=== PATIENT | female | born 2000 | race Caucasian/White ===

== ENCOUNTER 2019-07-19 14:01 | Day surgery (SDC) | payer OTHER, SELFPAY ==
[2019-07-19 14:22] VITALS: BP 118/70; TEMP 99.2; BMI 31.9
[2019-07-19] MEDS ORDERED: Ondansetron PF 4 MG/2 ML Vial IVP PRN (14:24)
[2019-07-19] MEDS ORDERED: Promethazine HCl 25 MG/ML VIAL IM PRN (14:24)
[2019-07-19] MEDS ORDERED: hydrALAZINE 20 MG/ML VIAL SLOW IVP PRN (14:24)
--- NOTE | 2019-07-19 14:24 | PDOC.LDHP ---
Labor and Delivery H&P Chief complaint: other (ECV) HPI: Patient presents for EVC. She does not think she has turned over, but she has been moving a lot. She denies LOF, VB. or contractions. Current gestational age (weeks): 37 (and 5 days) Due date: 08/04/19 Dating criteria: last menstrual period Grav: 1 Para: 0 Current complications: none (Breech) Abnormal US findings: No Past Medical History: Celiac disease Food Allergies. Current medications: pre-radha vitamins, other (Daily Probiotic) Allergies/Adverse Reactions: Allergies Allergy/AdvReac Type Severity Reaction Status Date / Time gluten Allergy Verified 07/19/19 14:22 wheat Allergy Verified 07/19/19 14:22 Social history: none - Physical Exam Vital signs reviewed and normal: yes (BP 118/70. Pulse 84bpm.) General: NAD Lungs: nonlabored breathing Abdomen: gravid Extremeties: no edema FHT: category 1 (150 baseline, Moderate variability, +Accel. No decelerations) [place] contractions every: none - OB Labs Blood type: A RH: positive Antibody Screen: negative HIV: negative RPR: negative HEPSAg: negative 1 hour GCT: positive 3 hour GTT: negative TID testing. GBS: negative Urine drug screen: not done Rubella: immune - Assessment at [id number] with Breech presentation - Plan Plan: informed consent obtained -: Terbutaline given Mineral oil at bedside. Dr. Hamm notified
[2019-07-19] MEDS ORDERED: Lactated Ringer's 500 ML IV PRN (14:27)
[2019-07-19] MEDS ORDERED: Mineral Oil PER 1 ML FS SCH (14:30)
[2019-07-19] MEDS ORDERED: Terbutaline Sulfate 1 MG/ML VIAL SC SCH (14:30)
--- NOTE | 2019-07-19 15:33 | OP ---
DATE OF PROCEDURE: 07/19/2019 TIME OF SERVICE: 1445 hours. PREOPERATIVE DIAGNOSIS: 37 weeks' gestation. POSTOPERATIVE DIAGNOSES: 1. 37 weeks' gestation. 2. Conversion to cephalic presentation. PROCEDURE PERFORMED: External cephalic version with ultrasound guidance. ANESTHESIA: None. MEDICATIONS: 0.25 terbutaline subcu x1 approximately 5 minutes prior to procedure. FINDINGS: 1. Marion breech presentation, female infant with head and maternal right upper quadrant back through the right lower quadrant and marion breech from the 4 to 6 o'clock position. Normal amniotic fluid index for 37 weeks' gestation. 2. Good heart rate, tracing category I pre and postprocedurally. 3. Ultrasound guidance throughout external cephalic version. DISPOSITION: Home in good condition. FOLLOWUP: Followup with Vianey Adamson, certified nurse staff veterinarian. DESCRIPTION OF PROCEDURE: The patient gave verbal and written informed consent for the procedure. Blood type was noted to be Rh positive. She had a category I heart rate tracing. Findings as noted and the operative findings were noted. After awaiting approximately 5 minutes, the patient was laid flat and mineral oil was applied to her abdomen. Sonogram confirmed the findings as noted in the operative findings and was utilized throughout. The infant's breech was elevated and displaced in a counter-clockwise manner toward the maternal left upper quadrant. At the same time, the head by the logging equipment operator's other hand rotated in a counter-clockwise manner through the 10 o'clock position to 9 and then down to 6 engaging in the pelvis. Version from marion breech to cephalic was accomplished approximately 30 to 45 seconds. heart tones were checked throughout and as well as postprocedurally noted to be 130s to 140s, category I. No abnormalities were noted. The patient will be set up and monitored for approximately another hour if category I heart rate tracing is maintained. The patient will be discharged home with ER precautions and scheduled follow up with Vianey Adamson. Job ID: [id number]
== END 2019-07-19 17:00 | disposition home or self-care (01) ==
LOC: L&D/OP 14:01
PROVIDERS: ATTEND Obstetrics & Gynecology
PROC: 10E0XZZ Delivery of Products of Conception, External Approach (ICD-10-PCS; principal; 2019-07-19)
DX: O32.1XX0 Maternal care for breech presentation, not applicable or unspecified (principal); Z3A.37 37 weeks gestation of pregnancy; Z88.8 Allergy status to other drugs, medicaments and biological substances
CPT/HCPCS: J3105

== ENCOUNTER 2019-08-10 11:06 | Day surgery (SDC) | payer SELFPAY ==
[2019-08-10 12:14] VITALS: BMI 32.4
[2019-08-10] MEDS ORDERED: FLU VACC QS2019-20(6MOS UP)/PF 60 MCG/0.5 ML SYRINGE IM ONE (12:45)
[2019-08-10] MEDS ORDERED: hydrALAZINE 20 MG/ML VIAL SLOW IVP PRN (14:45)
--- NOTE | 2019-08-10 15:59 | PRG ---
DATE OF SERVICE: 08/10/2019 PRIMARY OB: . Vianey Adamson, nurse bartender. CHIEF COMPLAINT: Elevated blood pressures. HISTORY OF PRESENT ILLNESS: The patient is a 19-year-old G1, P0 female with an intrauterine at 40 weeks and 6 days, presenting to Labor and Delivery after being sent from the clinic for elevated blood pressures noted in clinic, reported as high as 150/80. The patient denies headache, chest pain, shortness of breath, nausea, vomiting, diarrhea, constipation outside her normal habits, new rashes, hip problems, knee problems, muscle weakness, vaginal bleeding, or leakage of fluid. The patient does report she lives about an hour and hour from here, had been contemplating an elective induction with Dr. Crook, OB provider covering, while Ms. Vianey Adamson is out. PAST MEDICAL HISTORY: Celiac disease. PAST SURGICAL HISTORY: Negative. ALLERGIES: NO KNOWN DRUG ALLERGIES. MEDICATIONS: vitamins. SOCIAL HISTORY: Denies drug, alcohol, or tobacco use. OB LABS: Unavailable at the time of dictation. REVIEW OF SYSTEMS: Per HPI. PHYSICAL EXAMINATION: VITAL SIGNS: Blood pressure is 111/74, heart rate of 115, her pressures throughout her stay have ranged from 111 to 135 systolic and 70s and 80s diastolic, pulse 80s to 100s, respiratory rate of 20, saturating 98% on room air, and temperature 98.3. GENERAL: She appears to be in no acute distress. She is alert, oriented, cooperative, and pleasant to interact with. HEAD: Normocephalic, atraumatic. LUNGS: Clear to auscultation bilaterally. HEART: Has regular rate and rhythm. ABDOMEN: Gravid and soft. EXTREMITIES: Nontender, nonedematous. : Exam has been deferred, but reported to be one in sick in the office just prior to presentation. heart tracing shows a baby with a baseline in the 140s with moderate long-term variability, positive 15 x 15 accelerations and no decelerations. Tocometer showing probably some irritability without contractions. ASSESSMENT AND PLAN: The patient is a 19-year-old female, G1, P0, presenting 40 weeks and 6 days for an isolated blood pressure in the clinic. The patient has been here for a total of 3.5 hours and has not had any elevated blood pressures. The patient is being contemplated elective induction, which was offered. She is chosen to go home and waited out a little bit longer. We did ask her to follow up with her primary OB in the next couple of days for another blood pressure check. Her primary provider, Ms. Vianey Adamson, should be back in town in about a week. Term labor precautions have been provided. The patient is a 19-year-old female, who presented at 40 weeks and 6 days for some isolated blood pressure in the clinic. No evidence of preeclampsia here with us. Fetus has a category 1 tracing. The patient is being discharged to home with term labor precautions and requests to follow up in a couple of days with her primary OB. Job ID: [id number]
== END 2019-08-10 14:27 | disposition home health service, planned readmission (86) ==
LOC: L&D/OP 11:06
PROVIDERS: ATTEND Advanced Practice Midwife
DX: O13.3 Gestational [pregnancy-induced] hypertension without significant proteinuria, third trimester (principal); O99.613 Diseases of the digestive system complicating pregnancy, third trimester; K90.0 Celiac disease; O48.0 Post-term pregnancy; Z3A.40 40 weeks gestation of pregnancy
CPT/HCPCS: 99282

== ENCOUNTER 2019-08-14 19:34 | Inpatient (IN) | payer OTHER, SELFPAY ==
[2019-08-14] MEDS ORDERED: Ondansetron PF 4 MG/2 ML Vial IVP PRN (19:58)
[2019-08-14] MEDS ORDERED: Ibuprofen 800 MG TAB PO PRN (19:58)
[2019-08-14] MEDS ORDERED: Promethazine HCl 25 MG/ML VIAL IM PRN (19:58)
[2019-08-14] MEDS ORDERED: Acetaminophen 500 MG TAB PO PRN (19:58)
[2019-08-14] MEDS ORDERED: Docusate 100 MG CAP PO PRN (19:58)
[2019-08-14] MEDS ORDERED: Butorphanol Tartrate 1 MG/ML VIAL SLOW IVP PRN (19:58)
[2019-08-14] MEDS ORDERED: Lidocaine 1% (PF) 30 ML VIAL SC PRN (19:58)
[2019-08-14] MEDS ORDERED: hydrALAZINE 20 MG/ML VIAL SLOW IVP PRN (19:58)
[2019-08-14 20:04] VITALS: BMI 32.4
[2019-08-14 20:08] LABS: Amnisure Test RUPTURE DETECTED (No Rupture)
[2019-08-14 20:09] LABS: Amnisure Internal Control QC ACCEPTABLE (ACCEPTABLE)
--- NOTE | 2019-08-14 20:19 | HP ---
TIME OF EVALUATION: Roughly 1934. LOCATION: Labor and delivery in bed 8. This is a patient of Vianey Adamson who is currently unavailable. REASON FOR EVALUATION: Contractions at 41 weeks and 1 day. HISTORY OF PRESENT ILLNESS: In brief, this patient is a 19-year-old , G1, P0, at 41 weeks and 1 day with an EDC of August 04, who arrives with irregular contractions. She states that she was 2 cm at her last check. She denies vaginal bleeding or leakage of fluid. She has good movement. Despite a history of celiac disease in the past, she has no active issues. REVIEW OF SYSTEMS: Complete review of systems was checked and is otherwise negative unless specified in the HPI. PAST MEDICAL HISTORY: Significant for past celiac disease. ALLERGIES: NONE. SURGICAL HISTORY: None. OBSTETRICAL HISTORY: She is a primigravida and she is GBS negative. SOCIAL HISTORY: Negative for alcohol, tobacco, and drug use. PHYSICAL EXAMINATION: VITAL SIGNS: Blood pressure is 123/72, pulse is 78, respirations are 18 and nonlabored, and she is afebrile. GENERAL: Clinically, she is in no acute distress with irregular contraction discomfort. ABDOMEN: Nonsurgical and size consistent. PELVIC: Vaginal exam by RN reveals a cervix of 3 cm dilated, 80% effaced, -1 station. Unclear if there is rupture of membranes versus bloody mucous discharge. There is no gross evidence of leakage. AmniSure was collected. On monitor heart tones are in the 130s to 140s, category I, there is irregular contractions and it is anywhere from every 5 to 8 minutes. ASSESSMENT: This is a primigravida at 41 weeks and 1 day, GBS negative, in latent labor. I did discuss with her inpatient admission due to her EGA of 41 weeks, being late term. I discussed that management would not change even if she was ruptured, but we did need to see if she was ruptured just for notification of the pediatric team. Her GBS is negative. PLAN: 1. Recommend admission to labor and delivery. 2. AmniSure is sent. 3. Routine pain medications. 4. Labor augmentation if desired (patient desires low intervention). 5. No evidence of acute maternal- compromise at this time. 6. Once again, recommend delivery due to late term . Job ID: [id number]
[2019-08-14 21:26] LABS: Hemoglobin 13.4 g/dL (12.0-16.0); Mean Corpuscular HGB CONC 33.1 g/dL (32.0-36.0); Mean Corpuscular Hemoglobin 28.7 pg (27.0-31.0); Mean Corpuscular Volume 86.6 fL (78.0-98.0); Mean Platelet Volume 7.9 fL (7.4-10.4); Platelet Count 242 thou/uL (130-400); RBC Distribution Width 12.1 % (11.5-14.5); Red Blood Cell (RBC) Count 4.68 mill/uL (4.20-5.40); White Blood Cell (WBC) Count 15.9 thou/uL (4.8-10.8)
[2019-08-14 22:12] LABS: Syphilis Antibody Nonreactive (Nonreactive); Syphilis Antibody Index 0.06 S/CO (<1.00 Non-Reactive)
[2019-08-14 22:57] LABS: HBSAg Index 0.12 S/CO (0-0.99); Hep B Surf Ag Non-Reactive S/CO (NonReactive)
[2019-08-15] MEDS ORDERED: NS w/ Oxytocin 10 units 500 ML IV SCH (05:45)
--- NOTE | 2019-08-15 05:45 | PDOC.LDPN ---
Labor & Delivery Progress Note - Objective Vital signs reviewed and normal: yes General: NAD Uterine fundus: non tender SVE: by BIENVENIDO Kowalski recently Dilation: 3-4 Effacement: 50% Station: -1 FHT: category 1 [place] contractions every: irregular - Assessment (1) PROM (premature rupture of membranes) Code(s): O42.90 - LALIT ROM, 7TH0 BETW RUPT & ONST LABR, UNSP WEEKS OF GEST Current Visit: Yes Status: Acute Plan: labor augmentation, pitocin for augmentation (WE are now at prolonged ROM , but GBS negative. I have reviewed need for pitocin with her. Pitocin recommended although she would prefer limited itervention. Pitocin needed as kareem Prolonged ROM and needs augmentation. Patient understands. )
[2019-08-15] MEDS: Lactated Ringer's 1,000 ML IV SCH ×3 (07:14→17:56)
[2019-08-15] MEDS: NS / Oxytocin 40 units/1000ml 1,000 ML IV PRN ×2 (14:47→15:58)
--- NOTE | 2019-08-15 15:52 | PDOC.OPDEL ---
OB Operative/Delivery Note Delivery Dr/Surgeon: Tato Aguilera Pre-Delivery Diagnosis: ruptured membrane Procedure/Post Delivery Dx: spontaneous vaginal delivery Weeks gestation: 41 (41.4) Anesthesia: local - Findings A Sex: female - 1 min: 8 - 5 min: 9 - Additional Findings/Plan Placenta delivered: spontaneous Repaired Obstetrical Laceration: vaginal (left vaginal, right periurethral) Estimated blood loss: 630 mL Compilations/Other Findings: Delivering Physician: Basia Aguilera DO Attending: Martina Godwin MD Procedure: Spontaneous Vaginal Delivery Anesthesia: Local for Repair EBL: 630 ml Pre-op Diagnosis: 1. Term intrauterine 2. PROM Post-op Diagnosis: 1. Term intrauterine , delivered 2. same as above Indications: A 19 y/o female presents with PROM and irregular contractions Delivery Note: This is 19yo F @ 41.4 wks who delivered a viable F at 14:45 on 08/15/2019. Following an uneventful intrapartum course, a vigorous female was delivered over an intact perineum in the occipitoanterior position. Nuchal cord x1, which was reduced. Anterior shoulder and then remainder of the body delivered. The head was held down and mouth and nares were bulb suctioned. Cord clamped and cut after 1 minute delay and cord blood collected. Placenta delivered intact with a 3 vessel cord noted. Fundal massage was performed and the fundus was firm. The cervix and vagina were inspected and a left vaginal laceration noted and repaired with 2-0 Vicryl in the usual fashion with good approximation and hemostasis after a local anesthetic 1% lidocaine was injected at site. A right periurethral laceration was also repaired using 4-0 Vicryl. Hemostasis noted after repair. A straight catheter was inserted prior to repair. went to nursery in good condition for routine care. Apgars were 8/9 at 1 & 5 minutes, respectively. Patient tolerated delivery well and went to after routine recovery/care. Post delivery plan: routine recovery Addendum - Attending - Attending Attestation Date/Time: 08/16/19 0202 I was present for the entire delivery and repair. -Jez
[2019-08-15] MEDS ORDERED: Bisacodyl 10 MG SUPP PR PRN (17:13)
[2019-08-15] MEDS ORDERED: Adacel (T-DAP) 0.5 ML SYRINGE IM ONE (17:13)
[2019-08-15] MEDS ORDERED: NS / Oxytocin 40 units/1000ml 1,000 ML IV SCH (17:13)
[2019-08-15] MEDS ORDERED: Lanolin Ointment 7 GM TUBE TOP PRN (17:13)
[2019-08-15] MEDS ORDERED: diphenhydrAMINE 25 MG CAP PO PRN (17:13)
[2019-08-15] MEDS ORDERED: Ondansetron PF 4 MG/2 ML Vial IVP PRN (17:13)
[2019-08-15] MEDS ORDERED: Preparation H Ointment 28 GM TUBE PR PRN (17:13)
[2019-08-15] MEDS ORDERED: Milk Of Magnesia 30 ML UDCUP PO PRN (17:13)
[2019-08-15] MEDS ORDERED: Benzocaine-Menthol 82.5 ML CAN TOP PRN (17:13)
[2019-08-15] MEDS ORDERED: hydrALAZINE 20 MG/ML VIAL SLOW IVP PRN (17:13)
[2019-08-15] MEDS: Ferrous Sulfate 325 MG TAB PO SCH (17:53)
[2019-08-15] MEDS ORDERED: FLU VACC QS2019-20(6MOS UP)/PF 60 MCG/0.5 ML SYRINGE IM ONE (21:00)
[2019-08-15] MEDS: Docusate Calcium (SURFAK) 240 MG CAP PO SCH (23:03)
[2019-08-15] MEDS: Ibuprofen 800 MG TAB PO SCH (23:03)
[2019-08-16 06:55] LABS: Hemoglobin 10.1 g/dL (12.0-16.0)
[2019-08-16] MEDS: Ibuprofen 800 MG TAB PO SCH ×2 (07:24→14:55)
[2019-08-16] MEDS: Ferrous Sulfate 325 MG TAB PO SCH ×2 (07:29→16:25)
--- NOTE | 2019-08-16 07:45 | PDOC.PP ---
Post Progress Note Post Day #: 1 Subjective: Doing well, only complains of difficulties with . PO intake tolerated: yes Ambulation: yes Vital Signs (12 hours) Temp Pulse Resp BP BP Pulse Ox 08/16/19 04:10 98.7 F 79 18 96/52 L 08/16/19 00:10 99.4 F 81 18 115/55 L 08/15/19 19:50 99.3 F 97 18 116/58 L 99 Weight Weight 195 lb - Physical Examination General: NAD Respiratory: non-labored breathing Abdominal: lochia (normal), no distention, appropriately TTP Fundus firm & at: below umbilicus Neurological: no gross focal deficits Psychiatric: A&Ox3, normal affect Result Diagrams: 08/16/19 06:10 Additional Labs: Post Labs Blood Type A POSITIVE 08/14/19 21:51 Hep Bs Antigen Non-Reactive S/CO (NonReactive) 08/14/19 20:20 (1) (spontaneous vaginal delivery) Code(s): O80 - ENCOUNTER FOR FULL-TERM UNCOMPLICATED DELIVERY Status: Acute (2) Prolonged rupture of membranes, greater than 24 hours, delivered Code(s): O42.10 - LALIT ROM, ONSET LABOR > 24 HR FOL RUPT, UNSP WEEKS OF GEST Status: Acute - Assessment/Plan Doing well. consult today. Patient will need to stay another night given prolonged rupture of membranes. Anticipate d/c tomorrow.
[2019-08-16] MEDS: Docusate Calcium (SURFAK) 240 MG CAP PO SCH (09:57)
[2019-08-16] MEDS: Prenatal Vitamin 1 TAB PO SCH (09:58)
[2019-08-17 08:16] VITALS: BP 104/54; TEMP 97.8
[2019-08-17] MEDS: Docusate Calcium (SURFAK) 240 MG CAP PO SCH (09:28)
[2019-08-17] MEDS: Ferrous Sulfate 325 MG TAB PO SCH (09:29)
[2019-08-17] MEDS: Ibuprofen 800 MG TAB PO SCH ×2 (09:29→14:12)
[2019-08-17] MEDS: Prenatal Vitamin 1 TAB PO SCH (09:30)
--- NOTE | 2019-08-17 16:21 | DIS ---
DATE OF ADMISSION: 08/14/2019 DATE OF DISCHARGE: 08/17/2019 PRIMARY OB: Ms. Vianey Thompson Juan [place], LINDA. ADMITTING DIAGNOSES: 1. Intrauterine at 41 weeks. 2. Labor. DISCHARGE DIAGNOSES: 1. Intrauterine at 41 weeks. 2. Labor. PROCEDURE PERFORMED: Term spontaneous vaginal delivery. HOSPITAL COURSE: The patient is a 19-year-old G1, now P1 female, who presented to Labor and Delivery at 41 weeks and a day in latent labor. Given her gestational age, recommendation was made for augmentation of labor as the patient was not in active labor at the time. The patient's course was uncomplicated and resulted in a term spontaneous vaginal delivery. Please refer to the delivery note for complete details. Her course has been uncomplicated. Today is day 2. She reports she is tolerating p.o., voiding on her own, having decreased lochia and good pain control. PHYSICAL EXAMINATION: VITAL SIGNS: Most recent vital signs; blood pressure is 117/56, temperature 98.2, pulse of 86, respiratory rate of 16, and saturating 96% on room air. GENERAL: She appears to be in no acute distress. She is alert and oriented, cooperative and pleasant to interact with. HEENT: Head is normocephalic, atraumatic. ABDOMEN: Fundus is firm. EXTREMITIES: Nontender, nonedematous. The patient is being discharged to home. She has instructions to follow up with Ms. Vianey Adamson in 6 weeks for routine visit or sooner if she experiences fever, increasing pain, or bleeding. The patient will be using [id number] analgesics for pain control as needed. Job ID: [id number]
--- NOTE | 2019-08-18 06:54 | PQF ---
[employer] Equipment Mechanic Crystal Reports Winform ViewerGUNNELS ARTURO LAND MARSHALLANDRE [id number] CLINICAL DOCUMENTATION CLARIFICATION FORM: POST DISCHARGE Addendum to original discharge summary date: ____ Late entry note date: NOTE: I was not the discharge physician for this case____ DATE: 08/18/2019 ATTN:ANDRE MARSHALL Please exercise your independent, professional judgment in responding to the clarification form. Clinical indicators are provided on the bottom of this form for your review Please check appropriate box(s): [ ] Acute blood loss anemia [ ] Chronic Anemia [ X] Other diagnosis __From blood loss at delivery. HCT of 30 PP is NOT abnormal [ ] Unable to determine In addition, please specify: Present on Admission (POA): [ ] Yes [X ] No [ ] Unable to determine For continuity of documentation, please document condition throughout progress notes and discharge summary. Thank You. CLINICAL INDICATORS - SIGNS / SYMPTOMS / LABS Hgb 13.4 on 08/14 and 10.1 on 08/16 - Documented in Laboratory results HCT 40.5 on 08/14 and 30.1 on 08/16- Documented in Laboratory results EBL 630 ml - Documented in Labor and Delivery notes BP 90/57 on 08/16 - Documented in Vital Signs RISK FACTORS TERM intrauterine 41.4 weeks- Documented in Labor and Delivery notes Left vaginal and right periuretheral laceration - Documented in Labor and Delivery notes Spontaneous Vaginal Delivery - Documented in Labor and Delivery notes TREATMENTS: Ferrous sulfate 325 mg - Documented in Medication report (This form is maintained as a part of the permanent medical record) 2014 [employer]. All Rights Reserved [email or web address] [not provided] [email or web address]
== END 2019-08-17 14:45 | disposition home or self-care (01) | DRG 807 ==
LOC: L&D/OP 19:34 → L&D 21:16 → L&D-LIB 21:50 → 3SW 08-15 17:42
PROVIDERS: ADMIT Obstetrics & Gynecology; ATTEND Obstetrics & Gynecology
PROC: 10E0XZZ Delivery of Products of Conception, External Approach (ICD-10-PCS; principal; 2019-08-14)
PROC: 0UQMXZZ Repair Vulva, External Approach (ICD-10-PCS; 2019-08-14)
DX: O42.12 Full-term premature rupture of membranes, onset of labor more than 24 hours following rupture (principal); Z37.0 Single live birth; O69.81X0 Labor and delivery complicated by cord around neck, without compression, not applicable or unspecified; Z3A.41 41 weeks gestation of pregnancy; O70.0 First degree perineal laceration during delivery; O71.82 Other specified trauma to perineum and vulva
CPT/HCPCS: 36415; 36416; 84112; 85014; 85018; 85027; 86780; 86850; 86900; 86901; 87340; 99285; J2405; J2590